=== PATIENT | male | born 1985 | race Caucasian/White ===

== ENCOUNTER 2023-10-12 21:24 | Emergency (ER) | payer OTHER, SELFPAY ==
[2023-10-12 21:24] VITALS: BP 113/64; PULSE 76; RESP 20; TEMP 36.9; O2SAT 98; BMI 29.5
--- NOTE | 2023-10-12 21:28 | ECG_ITS ---
APPROVED REPORT Exam: Resting ECG HR:73 bpm ECG Measurements Heart Rate 73 AXES TX 161 P 54 QRSd 103 QRS 86 QT 372 T 42 QTc 398 Conclusion SINUS RHYTHM NORMAL ECG UNCONFIRMED REPORT Electronically signed by : Jose J Shirley, 10/12/2023 23:16:48
--- NOTE | 2023-10-12 21:37 | [facility].EDGENADL ---
Discharge Plan Disposition Patient Disposition: Home, Self-Care Referrals Follow up/Referrals: Michele Fay MD [Staff Physician] - See instructions Activity Restrictions/Add. Instructions Additional Instructions/Restrictions: No evidence of an acute cardiopulmonary or neurovascular emergency today. Please follow-up with Dr. Fay in his clinic for further evaluation likely to get an ultrasound/echo of your heart and to be put on a Holter/event monitor. Please drink plenty of fluids with salt and sugar containing liquids such as Gatorade or Powerade. Return with any significant worsening of your symptoms. Clinical Impressions Clinical Impression: Syncope Instructions Patient Instructions: DI for Syncope in Adults (Fainting), DI for Syncope in Children (Fainting) Discharge ED Provider: Cooper Shirley General Adult HPI General Chief complaint: Syncope Stated complaint: Syncope, recent oral surgery Time Seen by Provider: 10/12/23 21:26 History of Present Illness HPI narrative: Patient is a 37-year-old male presenting today by EMS after a syncopal episode. 2 weeks ago he had all of his teeth removed with surgery and states that since that time he said decreased p.o. intake. He has been drinking some fluids but has had decreased oral intake of food. States the main reason for this is just that it has more difficulty now that he cannot. Does not have any significant pain. States that today he had been drinking low bit of alcohol and also smoking some marijuana denies any other drugs such as cocaine or methamphetamine use. Started to get lightheaded and had a syncopal episode. There was witnessed jerking but the patient had no postictal episode also did not have any urinary incontinence and did not bite his tongue. No history of epilepsy. Denies any chest pain shortness of breath fevers chills or any other symptoms. No history of any cardiopulmonary emergencies. Related Data Allergies Allergy/AdvReac Type Severity Reaction Status Date / Time No Known Allergies Allergy Verified 10/12/23 21:37 [facility] Disclaimer: The information contained in this section may have been updated after the patient was seen, as this information can be updated by other users. Social History Smoking Status: Current every day smoker alcohol intake: never current occupational status: other Travel in the last 8 weeks: None ROS Obtained: Yes All systems reviewed & no additional complaints except as documented Physical Exam General General appearance: alert and in no apparent distress Respiratory Respiratory exam: Present normal lung sounds bilaterally; Absent respiratory distress Cardiovascular Cardiovascular exam: Present regular rate and normal rhythm Abdominal Exam Abdominal exam: Present soft; Absent distention or tenderness Neurological Exam Neurological exam: Present alert, oriented X3, CN II-XII intact and normal gait; Absent motor sensory deficit Medical Decision Making Epifanio Inquiry Pt receiving controlled substance: No Vital Signs: 10/12/23 21:24 Temperature 98.5 F Temperature Source Oral Pulse Rate [Left] 76 Respiratory Rate 20 Blood Pressure [Right Arm] 113/64 Blood Pressure Mean [Right Arm] 80 02 Sat by Pulse Oximetry 98 Oxygen Delivery Method Room Air Lab Data Lab results reviewed: Yes I reviewed the patient's lab results. Lab Results 10/12/23 21:15: WBC 14.5 H, RBC 5.27, Hgb 17.0, Hct 50.6, MCV 95.9 H, MCH 32.3 H, MCHC 33.6, RDW 14.4, Plt Count 361, MPV 8.5, Neut % (Auto) 55.4, Lymph % (Auto) 36.9, Valley % (Auto) 4.9, Eos % (Auto) 1.8, Baso % (Auto) 0.9, Neut # (Auto) 8.0 H, Lymph # (Auto) 5.3 H, Valley # (Auto) 0.7, Eos # (Auto) 0.3, Baso # (Auto) 0.1, Sodium 142, Potassium 3.6, Chloride 110 H, Carbon Dioxide 21 L, Anion Gap 14.6, BUN 8 L, Creatinine 0.90, Estimated GFR 95, Est GFR ( Amer) 116, Glucose 89, Calcium 9.5, Phosphorus 3.5, Magnesium 2.0, Total Bilirubin 0.5, AST 26, ALT 16, Alkaline Phosphatase 66, Troponin I < 0.01, Total Protein 7.0, Albumin 4.2, Globulin 2.8, Albumin/Globulin Ratio 1.5, TSH 2.43 10/12/23 21:15 10/12/23 21:15 Orders (Tests/Meds): ED MEDICATIONS Discontinued Medications Generic Name Dose Route Start Last Admin Trade Name Freq PRN Reason Stop Dose Admin Lactated Ringer's 1,000 mls @ 999 mls/hr 10/12/23 21:45 10/12/23 21:39 Lactated Ringer's 1000 Ml Bag IV 10/12/23 22:45 999 mls/hr .Q1H1M TAE Administration ORDERS Category Date Time Status CBC w/Auto Diff [Complete Blood Count Auto Diff] Stat Lab 10/12/23 21:15 Completed CMP [Comprehensive Metabolic Panel] Stat Lab 10/12/23 21:15 Completed Magnesium Stat Lab 10/12/23 21:15 Completed Phosphorous Stat Lab 10/12/23 21:15 Completed TSH [Thyroid Stimulating Hormone] Stat Lab 10/12/23 21:15 Completed Trop I [Troponin I] Stat Lab 10/12/23 21:15 Completed Troponin I Q3H Lab 10/13/23 00:45 Ordered Troponin I Q3H Lab 10/13/23 03:45 Ordered ECG Data Tracing #1: I reviewed this ECG and interpreted as documented below: Ventricular rate of 73 normal sinus rhythm no acute ischemic changes or significant conduction abnormalities or explanation for patient's syncope normal axis Medical Decision Narrative: Patient is a well-appearing 37-year-old male presenting today with a syncopal episode likely had some myoclonic jerking associated with that this was not consistent historically with a seizure. He has a GCS of 15 normal neurologic exam. Given the lightheaded prodrome likely as a vasovagal episode possibly superimposed on dehydration after recent surgery and decreased p.o. intake over the last few weeks. Marijuana use and alcohol use superimposed on this also could be contributing factors. Nonetheless this is not consistent with a cardiovascular emergency or neurovascular emergency. EKG was unremarkable. IV fluids have been administered and will reassess. I cannot rule out structural heart disease and/or arrhythmia he will be advised to follow-up with cardiology for Holter monitor and/or echo. Will reassess after this initial workup is complete. Reassessment 1109 patient feels much better very well-appearing on my serial assessments cardiopulmonary and neurovascular reassessments are all normal. Labs unremarkable. He has been advised to follow-up with cardiology as stated above. He was discharged in a stable condition with no definitive emergent medical condition identified. Critical Care Critical Care Time Critical Care Time: No
[2023-10-12 21:39] LABS: Basophils # 0.1 K/mm3 (0-0.2); Basophils % 0.9 % (0.1-2.0); Eosinophils # 0.3 K/mm3 (0.0-0.4); Eosinophils % 1.8 % (0.1-12.0); Hematocrit 50.6 % (42.0-52.0); Lymphocytes # 5.3 K/mm3 (0.7-4.5); Lymphocytes % 36.9 % (10-50); Mean Corpuscular HGB Conc 33.6 g/dL (31.8-35.4); Mean Corpuscular Hemoglobin 32.3 pg (27.0-31.2); Mean Corpuscular Volume 95.9 fl (80-94); Mean Platelet Volume 8.5 fl (7.4-10.4); Monocytes # 0.7 K/mm3 (0.1-1.0); Monocytes % 4.9 % (1.7-9.3); Neutrophils % 55.4 % (37.0-80.0); Platelet Count 361 K/mm3 (142-424); Red Blood Count 5.27 M/mm3 (4.60-6.20); Red Cell Distribution Width 14.4 % (11.5-17.5); White Blood Count 14.5 K/mm3 (4.8-10.8)
[2023-10-12] MEDS: LACTATED RINGERS 1000ML 1,000 ML 999 ML IV (21:39)
[2023-10-12 21:44] LABS: Chloride 110 mmol/L (98-107); Sodium 142 mmol/L (136-145)
[2023-10-12 21:45] LABS: Potassium 3.6 mmoL/L (3.5-5.1)
[2023-10-12 21:47] LABS: Alanine Aminotransferase 16 U/L (12-78); Albumin Level 4.2 g/dl (3.5-5.0); Albumin/Globulin Ratio 1.5 (1.1-1.8); Alkaline Phosphatase 66 U/L (38-126); Anion Gap 14.6 mEq/L (5-15); Aspartate Amino Transferase 26 U/L (17-59); Bilirubin,Total 0.5 mg/dl (0.2-1.3); Blood Urea Nitrogen 8 mg/dl (9-20); Calcium 9.5 mg/dl (8.4-10.2); Carbon Dioxide 21 mmol/L (22.0-30.0); Estimated Glomerular Filt Rate 95 ml/min (>60); GFR (African American) 116 ML/MIN (>60); Globulin 2.8 g/dL (1.3-3.2); Glucose 89 mg/dl (74-100); Phosphorous 3.5 mg/dl (2.5-4.5)
[2023-10-12 22:00] LABS: Troponin I < 0.01 ng/ml (0.00-0.034)
[2023-10-12 22:19] LABS: Thyroid Stimulating Hormone 2.43 uIU/mL (0.465-4.68)
[2023-10-12 23:24] VITALS: BP 122/83; PULSE 79; RESP 18; TEMP 36.9; O2SAT 98
== END 2023-10-12 23:24 | disposition home or self-care (01) ==
PROVIDERS: Emergency Provider Student in an Organized Health Care Education/Training Program
DX: R55 Syncope and collapse (principal); F17.210 Nicotine dependence, cigarettes, uncomplicated
CPT/HCPCS: 80050; 80053; 83735; 84100; 84443; 84484; 85025; 93005; 96360; 99284; J7120